=== PATIENT | male | born 1940 | race Caucasian/White ===

== ENCOUNTER → 2018-03-22 | Outpatient (CLI) | payer OTHER ==
[~2018-03-22] MED LIST: ALBU1.25 IH; CARV80CP PO; CLOB0.5P MC; DILT120T3 PO; MULT1TAB87 PO; TRAM50TA PO
--- NOTE | 2018-03-22 15:30 | CARD ---
MR#: [id number] Date of Study: 03/22/2018 Ordering Physician: MILVIA GARRIDO, Referring Physician: MILVIA GARRIDO, Tech: Vivienne Parra APPROVED REPORT EXAM: Two-dimensional and M-mode echocardiogram with Doppler and color Doppler. Other Information Quality : FairHR: 72bpm INDICATION Diastolic Heart Failure RISK FACTORS Hypertension 2D DIMENSIONS RVDd3.2 (2.9-3.5cm)Left Atrium(2D)4.2 (1.6-4.0cm) IVSd1.1 (0.7-1.1cm)Aortic Root(2D)2.9 (2.0-3.7cm) LVDd5.1 (3.9-5.9cm)LVOT Diameter2.2 (1.8-2.4cm) PWd1.3 (0.7-1.1cm)LVDs3.4 (2.5-4.0cm) FS (%) 34.8 %SV80.4 ml LVEF(%)63.7 (>50%) Aortic Valve AoV Peak Arun.159.2cm/sAoV VTI30.0cm AO Peak GR.10.1mmHgLVOT Peak Arun.89.2cm/s LVOT VTI 18.64cmAO Mean GR.5mmHg KRISTA (VMAX)2.92hg6AQR (VTI)2.40cm2 Mitral Valve MV E Jpnqpppk48.0cm/sMV DECEL [id number] MV A Ipcmjobe86.7cm/sE/A Ratio0.8 Pulmonary Valve PV Peak Epchtrta130.7cm/sPV Peak Grad.6mmHg Tricuspid Valve TR P. Intbkpjj599rb/sTR Peak Gr.21mmHg Pulmonary Vein S1 Enoxsgni95.5cm/sD2 Qwvqdcfn79.7cm/s LEFT VENTRICLE The left ventricle is normal size. There is borderline concentric left ventricular hypertrophy. The l eft ventricular systolic function is normal. The Ejection Fraction is 55%. There is normal LV segment al wall motion. Transmitral Doppler flow pattern is Grade I-abnormal relaxation pattern. RIGHT VENTRICLE The right ventricle is normal size. There is normal right ventricular wall thickness. The right ventr icular systolic function is normal. ATRIA The left atrium size is normal. The right atrium size is normal. The interatrial septum is intact wit h no evidence for an atrial septal defect or patent foramen ovale as noted on 2-D or Doppler imaging. AORTIC VALVE The aortic valve is thickened but opens well. Doppler and Color Flow revealed trace aortic regurgitat ion. There is no significant aortic valvular stenosis. MITRAL VALVE The mitral valve is thickened but opens well. There is no mitral valve stenosis. Doppler and Color-fl ow revealed trace mitral regurgitation. TRICUSPID VALVE The tricuspid valve is normal in structure and function. Doppler and Color Flow revealed trace tricus pid regurgitation. There is no tricuspid valve stenosis. PULMONIC VALVE The pulmonic valve is not well visualized. Doppler and Color Flow revealed trace pulmonic valvular re gurgitation. GREAT VESSELS The aortic root is normal in size. The IVC was not well visualized. PERICARDIAL EFFUSION There is no evidence of significant pericardial effusion. Critical Notification Critical Value: No <Conclusion> The left ventricular systolic function is normal. The Ejection Fraction is 55%. There is normal LV segmental wall motion. Transmitral Doppler flow pattern is Grade I-abnormal relaxation pattern. Trace mitral regurgitation. Trace tricuspid regurgitation. There is no evidence of significant pericardial effusion. Signed by : Keaton Hernandez, Electronically Approved : 03/22/2018 15:28:37
== END | disposition home or self-care (01) ==
LOC: ECHO 13:46
PROVIDERS: ATTEND Internal Medicine Cardiovascular Disease
DX: I11.0 Hypertensive heart disease with heart failure (principal); I50.30 Unspecified diastolic (congestive) heart failure
CPT/HCPCS: 93306

== ENCOUNTER → 2019-06-27 | Outpatient (CLI) | payer MEDICARE ==
--- NOTE | 2019-06-27 11:04 | CARD ---
MR#: [id number] Date of Study: 06/27/2019 Ordering Physician: MILVIA GARRIDO, Referring Physician: MILVIA GARRIDO, Tech: Rosalee Malcolm CHARLES APPROVED REPORT EXAM: Two-dimensional and M-mode echocardiogram with Doppler and color Doppler. Other Information Quality : Good INDICATION Diastolic Heart Failure 2D DIMENSIONS RVDd3.8 (2.9-3.5cm)Left Atrium(2D)4.3 (1.6-4.0cm) IVSd1.3 (0.7-1.1cm)Aortic Root(2D)2.9 (2.0-3.7cm) LVDd5.0 (3.9-5.9cm)LVOT Diameter2.1 (1.8-2.4cm) PWd1.1 (0.7-1.1cm)LVDs3.2 (2.5-4.0cm) FS (%) 35.6 %SV75.3 ml LVEF(%)60.0 (>50%) Aortic Valve AoV Peak Arun.127.3cm/sAoV VTI26.0cm AO Peak GR.6.5mmHgAO Mean GR.4mmHg KRISTA (VTI)2.34cm2 Mitral Valve MV E Nrbotzvm53.5cm/sMV DECEL BXVQ681xt MV A Ctiikwvj19.0cm/sE/A Ratio1.2 Tricuspid Valve TR P. Ijwnmwzf352ep/sRAP IATJNZGM0puUf TR Peak Gr.88sbXjUQGF33ixYu LEFT VENTRICLE The left ventricle is normal size. There is mild asymmetric septal hypertrophy. The left ventricular systolic function is normal. The Ejection Fraction is 55-60%. There is normal LV segmental wall motio n. RIGHT VENTRICLE The right ventricle is normal size. The right ventricular systolic function is normal. ATRIA The left atrium is mildly dilated. The right atrium size is normal. The interatrial septum is intact with no evidence for an atrial septal defect or patent foramen ovale as noted on 2-D or Doppler imagi ng. AORTIC VALVE The aortic valve is calcified but opens well. Doppler and Color Flow revealed no significant aortic r egurgitation. There is no significant aortic valvular stenosis. MITRAL VALVE The mitral valve is normal in structure and function. Posterior mitral annular calcification is mild. There is no evidence of mitral valve prolapse. There is no mitral valve stenosis. Doppler and Color- flow revealed trace mitral regurgitation. TRICUSPID VALVE The tricuspid valve is normal in structure and function. Doppler and Color Flow revealed trace tricus pid regurgitation. There is mild pulmonary hypertension. The PA pressure was estimated at 36 mmHg. Th ere is no tricuspid valve stenosis. PULMONIC VALVE The pulmonic valve is not well visualized. Doppler and Color Flow revealed no pulmonic valvular regur gitation. There is no pulmonic valvular stenosis. GREAT VESSELS The aortic root is normal in size. The ascending aorta is normal in size. The IVC is normal in size a nd collapses >50% with inspiration. PERICARDIAL EFFUSION There is no evidence of significant pericardial effusion. Critical Notification Critical Value: No <Conclusion> The left ventricular systolic function is normal. The Ejection Fraction is 55-60%. There is normal LV segmental wall motion. Trace mitral regurgitation. Trace tricuspid regurgitation. The PA pressure was estimated at 36 mmHg. There is no evidence of significant pericardial effusion. Signed by : Keaton Hernandez, Electronically Approved : 06/27/2019 11:03:25
== END | disposition home or self-care (01) ==
LOC: ECHO 09:43
PROVIDERS: ATTEND Internal Medicine Cardiovascular Disease
DX: I08.3 Combined rheumatic disorders of mitral, aortic and tricuspid valves (principal)
CPT/HCPCS: 93306

== ENCOUNTER → 2019-11-09 | Outpatient (CLI) | payer MEDICARE ==
--- NOTE | 2019-11-09 13:30 | RAD ---
EXAM: Bilateral lower extremity venous Doppler sonogram. HISTORY: Cellulitis. TECHNIQUE: Martinez scale and color Doppler sonographic evaluation of the bilateral lower extremity veins with spectral waveform analysis was performed. FINDINGS: There is normal color flow, normal compressibility and there are normal spectral waveforms in the common femoral, superficial femoral, popliteal, posterior tibial and greater saphenous veins. IMPRESSION: No Doppler evidence of lower extremity deep venous thrombosis. Electronically signed by: Brandee Lane MD (11/09/2019 1:26 PM) [id number]
== END | disposition home or self-care (01) ==
LOC: US 12:37
PROVIDERS: ATTEND Internal Medicine Nephrology
DX: R60.0 Localized edema (principal); L03.90 Cellulitis, unspecified
CPT/HCPCS: 93970

== ENCOUNTER → 2020-07-18 | Outpatient (CLI) | payer MEDICARE ==
--- NOTE | 2020-07-18 14:14 | RAD ---
EXAM: Renal sonogram. HISTORY: Renal insufficiency. TECHNIQUE: Sonographic imaging of the kidneys and bladder was performed. COMPARISON: None. FINDINGS: The kidneys are normal in size. There is echogenic renal parenchyma. There is mild cortical thinning. There is a 2.3 cm simple appearing cyst within the lateral left kidney. No solid renal les ion is seen. There is no hydronephrosis. There is slight elongation of the urinary bladder. The prevo id bladder volume is 37 cc. The ureteral jets are not seen during the exam. IMPRESSION: 1. Echogenic renal parenchyma. This can be seen with medical renal disease. 2. Bilateral renal cortical thinning. 3. 2.3 cm simple left renal cyst. 4. Slightly elongated bladder configuration. No convincing bladder mass or abnormal bladder wall thic kening is seen. Electronically signed by: Brandee Lane MD (07/18/2020 2:12 PM) [id number]
== END ==
LOC: US 12:49
PROVIDERS: ATTEND Internal Medicine Nephrology
DX: N18.30 Chronic kidney disease, stage 3 unspecified (principal); N28.1 Cyst of kidney, acquired
CPT/HCPCS: 76770

== ENCOUNTER 2021-03-19 14:11 | Inpatient (IN) | payer MEDICARE ==
[~2021-03-19] VITALS: Ht 167.6 cm; Wt 90.0 kg
--- NOTE | 2021-03-19 14:43 | PHYS DOC ---
Adult General Chief Complaint Chief Complaint: SHORTNESS OF BREATH HPI HPI Patient is a 80-year-old male presenting for shortness of breath. This is an acute on chronic issue. He has known diastolic heart failure and actually saw his cardiology prior to arrival today. States he has been gaining more weight than usual, states he is unsure how much weight he has gained but states he is definitely fluid overloaded. He has had increased shortness of breath with physical exertion and states that he has not been able to lay flat as he feels as though he is getting smothered. Symptoms prompted him to see liberal arts and humanities chair today. I had discussion and signout from liberal arts and humanities chair to was concerned of patient's fluid overloaded state and need for ER evaluation and likely admission. On arrival, patient reports ongoing shortness of breath that is worse with exertion, no other concerning signs or symptoms such as fever, lightheadedness, falls, trauma, chest pain, ripping or tearing sensation in chest, abdominal pain, changes in bladder or bowel function, no motor or sensory or neuro function changes past baseline. He has been compliant with all home medications Review of Systems Review of Systems Fourteen body systems of review of systems have been reviewed. See HPI for pertinent positives and negative responses, other capellan all other systems are negative, non-pertinent or non-contributory Allergies Allergies Allergies Coded Allergies Type Severity Reaction Last Updated Verified Penicillins Allergy Unknown 06/27/19 Yes Physical Exam Physical Exam Constitutional: Age-appropriate, overweight, no acute distress and nontoxic in appearance HENT: Normocephalic, atraumatic, bilateral external ears normal, oropharynx moist, no oral exudates, nose normal. Eyes: PERRLA, EOMI, conjunctiva normal, no discharge. Neck: Normal range of motion, no tenderness, supple, no stridor. Cardiovascular: Heart rate regular, sinus rhythm, no murmurs rubs or gallops Lungs & Thorax: No obvious respiratory failure but there is rales present in bilateral lung bases right greater than left Abdomen: Bowel sounds normal, soft and protuberant, no tenderness, no masses, no pulsatile masses. Nonsurgical abdomen, no peritoneal signs Skin: Warm, dry, no erythema, no rash. Back: No tenderness, no CVA tenderness. Extremities: No tenderness, no cyanosis, no clubbing, ROM intact, 2+ pitting edema to bilateral upper extremities and 4+ pitting edema to bilateral lower extremities with evident venous stasis noted distal portions of bilateral lower extremities Neurologic: Alert and oriented X 3, grossly normal motor & sensory function, no focal deficits noted. Psychologic: Affect normal, judgement normal, mood normal. Current Patient Data Vital Signs Vital Signs Date Time Temp Pulse Resp B/P (MAP) Pulse Ox O2 Delivery O2 Flow Rate FiO2 03/19/21 15:02 97.9 71 16 151/70 (97) 98 Room Air Vital Signs Date Time Temp Pulse Resp B/P (MAP) Pulse Ox O2 Delivery O2 Flow Rate FiO2 03/19/21 15:02 97.9 71 16 151/70 (97) 98 Room Air Lab Results Laboratory Tests Test 03/19/21 14:44 White Blood Count 6.8 x10^3/uL Red Blood Count 4.06 x10^6/uL Hemoglobin 12.5 g/dL Hematocrit 37.9 % Mean Corpuscular Volume 93 fL Mean Corpuscular Hemoglobin 31 pg Mean Corpuscular Hemoglobin Concent 33 g/dL Red Cell Distribution Width 14.4 % Platelet Count 148 x10^3/uL Neutrophils (%) (Auto) 84 % Lymphocytes (%) (Auto) 5 % Monocytes (%) (Auto) 10 % Eosinophils (%) (Auto) 1 % Basophils (%) (Auto) 0 % Neutrophils # (Auto) 5.7 x10^3uL Lymphocytes # (Auto) 0.3 x10^3/uL Monocytes # (Auto) 0.6 x10^3/uL Eosinophils # (Auto) 0.1 x10^3/uL Basophils # (Auto) 0.0 x10^3/uL Prothrombin Time 9.4 SEC Prothromb Time International Ratio 0.9 Activated Partial Thromboplast Time 24 SEC Sodium Level 128 mmol/L Potassium Level 3.8 mmol/L Chloride Level 91 mmol/L Carbon Dioxide Level 27 mmol/L Anion Gap 10 Blood Urea Nitrogen 51 mg/dL Creatinine 1.9 mg/dL Estimated GFR (Cockcroft-Gault) 34.5 BUN/Creatinine Ratio 27 Glucose Level 98 mg/dL Calcium Level 8.6 mg/dL Total Bilirubin 0.8 mg/dL Aspartate Amino Transf (AST/SGOT) 21 U/L Alanine Aminotransferase (ALT/SGPT) 20 U/L Alkaline Phosphatase 101 U/L Troponin I High Sensitivity 40 ng/L QB-Mpw-A-Type Natriuretic Peptide 12241 pg/mL Total Protein 7.0 g/dL Albumin 2.6 g/dL Albumin/Globulin Ratio 0.6 Current Medications Medications (Trade) Dose Ordered Sig/Jm Route PRN Reason Start Time Stop Time Status Last Admin Dose Admin Nitroglycerin (Nitrostat) 0.4 mg PRN Q5MIN PRN SL CP RATING > 1/10 03/19/21 14:45 03/20/21 14:44 03/19/21 15:16 Furosemide (Lasix) 80 mg 1X ONCE IVP 03/19/21 16:15 03/19/21 16:16 EKG EKG EKG ordered and interpreted by myself 1514 hrs. as sinus rhythm at 69 bpm, unremarkable intervals, left axis deviation, no obvious ischemic findings, occasional PVCs, no STEMI Radiology/Procedures Radiology/Procedures XR CHEST 1V History: Shortness of breath. Comparison: CT abdomen and pelvis 12/28/2017 Technique: Portable AP radiograph of the chest. Findings: The lungs are adequately inflated. Chronic elevation of the right diaphragm. There is a small right pleural effusion. Subtle right lower lobe airspace o pacity. No pneumothorax. Enlarged cardiac silhouette. Calcification of the aorta. Degenerative changes of the shoulders and spine. Soft tissues are unremarkable. Impression: 1. Right pleural effusion and mild right basilar opacity may represent atelecta sis or infection. 2. Cardiomegaly. Electronically signed by: You Brennan MD (03/19/2021 3:45 PM) [id number] Heart Score C/O Chest Pain: No HEART Score for Chest Pain: HEART Score for Chest Pain Response (Comments) Value History Slighlty/Non-Suspicious 0 ECG Nonspecific Repolarizatio 1 Age > 65 2 Risk Factors >3 Risk Factors or Hx CAD 2 Troponin < Normal Limit 0 Total 5 Risk Factors: Risk Factors: DM, Current or recent (<one month) smoker, HTN, HLP, family history of CAD, obesity. Risk Scores: Risk Factors: DM, Current or recent (<one month) smoker, HTN, HLP, family history of CAD, obesity. Course & Med Decision Making Course & Med Decision Making ABCs unremarkable HPI physical exam and comprehensive ER work-up obtained concerning for acute exacerbation of chronic heart failure preserved ejection fraction I agree with patient's liberal arts and humanities chair that patient requires hospitalization as he is high risk for potential bounce back in poor outcome if discharged home with diuresis in outpatient setting Contacted hospitalist at [facility] and discussed need for hospitalizatio n, patient accepted under the care of Dr. Diggs. Patient and at bedside, updated on plan of care that included hospitalizati on for continued IV diuresis for which they were amenable. 80 mg IV Lasix administered prior to hospital admission. He admits he is full CODE STATUS at time of admission Dragon Disclaimer Dragon Disclaimer This electronic medical record was generated, in whole or in part, using a voice recognition dictation system. Departure Departure: Impression: Primary Impression: Acute on chronic diastolic heart failure with preserved ejection fraction Disposition: ADMITTED INPATIENT Admitting Physician: Sabas Diggs Condition: STABLE Referrals: SARA JUAREZ MD (PCP) BLAINE HOBBS DO Mar 19, 2021 14:43
[2021-03-19] MEDS ORDERED: NITROGLYCERIN SUBLINGUAL 0.4 MG BOTTLE OF 25. SL PRN ×2 (14:45→16:15)
[2021-03-19 15:08] LABS: BASO % 0 % (0-3); EOS # 0.1 x10^3/uL (0.0-0.7); EOS % 1 % (0-3); HEMATOCRIT 37.9 % (39.0-53.0); HEMOGLOBIN 12.5 g/dL (13.0-17.5); LYMPH # 0.3 x10^3/uL (1.0-4.8); LYMPH % 5 % (24-48); MEAN CORPUSCULAR HEMOGLOBIN 31 pg (25-35); MEAN CORPUSCULAR HGB CONC 33 g/dL (31-37); MEAN CORPUSCULAR VOLUME 93 fL (79-100); MONO # 0.6 x10^3/uL (0.0-1.1); MONO % 10 % (0-9); NEUT # 5.7 x10^3uL (1.8-7.7); NEUT % 84 % (31-73); PLATELET COUNT 148 x10^3/uL (140-400); RED BLOOD COUNT 4.06 x10^6/uL (4.30-5.70); RED CELL DISTRIBUTION WIDTH 14.4 % (11.5-14.5); WHITE BLOOD COUNT 6.8 x10^3/uL (4.0-11.0)
[2021-03-19 15:09] LABS: CALCIUM 8.6 mg/dL (8.5-10.1); CREATININE 1.9 mg/dL (0.7-1.3); GFR 34.5; POTASSIUM 3.8 mmol/L (3.5-5.1)
[2021-03-19 15:22] LABS: ALBUMIN 2.6 g/dL (3.4-5.0); ALBUMIN/GLOBULIN RATIO 0.6 (1.0-1.7); TOTAL BILIRUBIN 0.8 mg/dL (0.2-1.0)
--- NOTE | 2021-03-19 15:45 | EKG ---
[address] [address] Test Date: 2021-03-19 Test Time: 15:06:27 Pat Name: SILKE RAMIREZ Department: Room: Gender: M Parachute Officer: LOLITA : 1940 Requested By: BLAINE HOBBS Order Number: [id number] Reading MD: Roberto Alberto MD Measurements Intervals [place] Rate: 69 P: PA: QRS: -4 QRSD: 94 T: 26 QT: 388 QTc: 417 Interpretive Statements SR 1ST DEGREE AVB PVC Electronically Signed On 03-23-2021 21:40:47 FACILITY MAINTENANCE HELPER by Roberto Alberto MD
--- NOTE | 2021-03-19 15:47 | RAD ---
XR CHEST 1V History: Shortness of breath. Comparison: CT abdomen and pelvis 12/28/2017 Technique: Portable AP radiograph of the chest. Findings: The lungs are adequately inflated. Chronic elevation of the right diaphragm. There is a small right p leural effusion. Subtle right lower lobe airspace opacity. No pneumothorax. Enlarged cardiac silhouet te. Calcification of the aorta. Degenerative changes of the shoulders and spine. Soft tissues are unr emarkable. Impression: 1. Right pleural effusion and mild right basilar opacity may represent atelectasis or infection. 2. Cardiomegaly. Electronically signed by: You Brennan MD (03/19/2021 3:45 PM) [facility]
[2021-03-19] MEDS ORDERED: ACETAMINOPHEN 325 MG TABLET PO PRN (16:15)
[2021-03-19] MEDS ORDERED: FUROSEMIDE 40 MG/4 ML VIAL IVP ONE (16:15)
--- NOTE | 2021-03-19 17:34 | NUR ---
PATIENT IS A 80 Y O MALE ARRIVED VIA EMS. PATIENT IS A/O X 4, CALM AND COOPERATIVE UPON ASSESSMENT. PATIENT DENIED ANY PAIN AT THIS TIME, C/O SOB. PATIENT WAS ORIENTED TO THE ROOM AND HOSPITAL POLICIES, PATIENT IS CURRENTLY UP IN A CHAIR EATING DINNER.
[2021-03-19 18:06] VITALS: BP 162/70
[2021-03-19 18:07] LABS: BILIRUBIN,URINE NEG (NEG); CLARITY,URINE CLEAR; COLOR,URINE YELLOW; GLUCOSE,URINE NEG (NEG)
[2021-03-19 18:08] LABS: BACTERIA,URINE FEW /HPF (0-FEW); NITRITE,URINE NEG (NEG); SQUAMOUS EPITHELIAL CELL,UR FEW /LPF; UROBILINOGEN,URINE 0.2 mg/dL (0.2 mg/dL)
[2021-03-19] MEDS ORDERED: TAMS0.4C97 PO (18:31)
[2021-03-19] MEDS ORDERED: CARV12.547 PO (18:31)
[2021-03-19] MEDS ORDERED: FURO-68 PO (18:31)
[2021-03-19] MEDS ORDERED: DILT360T7 PO (18:31)
[2021-03-19 19:00] VITALS: BP_SYST 138; BP_SYST 162; BP_DIAS 70; BP_DIAS 84
[2021-03-19] MEDS: ACETAMINOPHEN 325 MG TABLET PO PRN (21:50)
[2021-03-19] MEDS: CARVEDILOL 12.5 MG TABLET PO SCH (21:50)
[2021-03-19 23:00] VITALS: BP 148/69
[2021-03-20 05:00] VITALS: BP 168/76
[2021-03-20 06:55] LABS: BASO % 0 % (0-3); EOS # 0.1 x10^3/uL (0.0-0.7); EOS % 2 % (0-3); HEMATOCRIT 36.7 % (39.0-53.0); HEMOGLOBIN 12.1 g/dL (13.0-17.5); LYMPH # 0.3 x10^3/uL (1.0-4.8); LYMPH % 6 % (24-48); MEAN CORPUSCULAR HEMOGLOBIN 31 pg (25-35); MEAN CORPUSCULAR HGB CONC 33 g/dL (31-37); MEAN CORPUSCULAR VOLUME 93 fL (79-100); MONO # 0.5 x10^3/uL (0.0-1.1); MONO % 10 % (0-9); NEUT # 4.1 x10^3uL (1.8-7.7); NEUT % 82 % (31-73); PLATELET COUNT 130 x10^3/uL (140-400); RED BLOOD COUNT 3.94 x10^6/uL (4.30-5.70); RED CELL DISTRIBUTION WIDTH 14.4 % (11.5-14.5)
[2021-03-20 07:05] LABS: CALCIUM 8.5 mg/dL (8.5-10.1); CREATININE 1.9 mg/dL (0.7-1.3); GFR 34.5; POTASSIUM 3.5 mmol/L (3.5-5.1)
--- NOTE | 2021-03-20 08:16 | PDOC2 ---
CARDIAC CONSULT DATE OF CONSULT DOS: DATE: 03/20/21 TIME: 08:09 REASON FOR CONSULT Reason for Consult CHF REFERRING PHYSICIAN Referring Physician Dr. Carrion SOURCE Source: Chart review, Patient HPI History of Present Illness This is a 80 yo male who presented secondary to shortness of breath. Was seen in clinic yesterday for routine visit with Dr. Alberto and referred to the hospital for acute on chronic diastolic CHF. Patient reports significant LE extremity edema. LE's have been weeping. also reports orthopnea and shortness of breath upon minimal exertion. He denies any chest pain, palpitations, dizziness, diaphoresis, or nausea/vomiting. PAST MEDICAL HISTORY Cardiovascular: CHF, HTN Renal/: Chronic renal insuff, Prostate Ca. PAST SURGICAL HISTORY Past Surgical History: No pertinent history FAMILY HISTORY Family History: Heart Disease, Hypertension SOCIAL HISTORY Smoke: No ALCOHOL: none Drugs: None Lives: with Family CURRENT MEDICATIONS Current Medications Current Medications Nitroglycerin (Nitrostat) 0.4 mg PRN Q5MIN PRN SL CP RATING > 1/10 Last administered on 03/19/21at 15:16; Start 03/19/21 at 14:45; Stop 03/20/21 at 14:44 Furosemide (Lasix) 80 mg 1X ONCE IVP Last administered on 03/19/21at 16:15; Start 03/19/21 at 16:15; Stop 03/19/21 at 16:16; Status DC Acetaminophen (Tylenol) 650 mg PRN Q4HRS PRN PO FEVER > 100.3'F; Start 03/19/21 at 16:15; Stop 03/19/21 at 21:19; Status DC Nitroglycerin (Nitrostat) 0.4 mg PRN Q5MIN PRN SL CHEST PAIN; Start 03/19/21 at 16:15; Stop 03/20/21 at 16:14; Status UNV Furosemide (Lasix) 80 mg BID IVP ; Start 03/20/21 at 09:00 Metolazone (Zaroxolyn) 5 mg DAILY PO ; Start 03/20/21 at 09:00 Carvedilol (Coreg) 12.5 mg BIDWMEALS PO Last administered on 03/19/21at 21:50; Start 03/19/21 at 21:00 Tamsulosin HCl (Flomax) 0.4 mg DAILY PO ; Start 03/20/21 at 09:00 Diltiazem HCl (Cardizem 24hr Cd) 360 mg DAILY PO ; Start 03/20/21 at 09:00 Acetaminophen (Tylenol) 650 mg PRN Q6HRS PRN PO MILD PAIN / TEMP > 100.3'F Last administered on 03/19/21at 21:50; Start 03/19/21 at 21:30 Active Scripts Active Reported Lasix (Furosemide) 40 Mg Tablet 1 Tab PO DAILY Carvedilol (Carvedilol) 12.5 Mg Tablet 12.5 Mg PO BID Flomax (Tamsulosin Hcl) 0.4 Mg Cap.er.24h 1 Cap PO DAILY Diltiazem 24Hr ER (Diltiazem HCl) 360 Mg Tab.er.24h 1 Tab PO DAILY ALLERGIES Allergies: Coded Allergies: Penicillins (Verified Allergy, Intermediate, 03/19/21) ciprofloxacin (Verified Allergy, Intermediate, 03/19/21) doxycycline (Verified Allergy, Intermediate, 03/19/21) ROS Review of Systems 14 point ROS conducted with pertinent positives noted above in HPI PHYSICAL EXAM General: Alert, Oriented X3, Cooperative, No acute distress HEENT: Atraumatic Lungs: Other (diminished bases) Heart: Regular rate Abdomen: Soft Extremities: Other (2-3+ bilateral LE edema ) Neuro: Normal speech, Sensation intact Psych/Mental Status: Mental status NL, Mood NL MUSCULOSKELETAL: Osteoarthritic changes both hands VITALS Vital Signs Vital Signs Date Time Temp Pulse Resp B/P (MAP) Pulse Ox O2 Delivery O2 Flow Rate FiO2 03/20/21 05:00 97.7 70 18 168/76 (106) 95 Room Air LABS LABS Laboratory Tests Test 03/19/21 14:44 03/19/21 15:50 03/19/21 16:00 03/19/21 17:35 White Blood Count 6.8 x10^3/uL (4.0-11.0) Red Blood Count 4.06 x10^6/uL (4.30-5.70) Hemoglobin 12.5 g/dL (13.0-17.5) Hematocrit 37.9 % (39.0-53.0) Mean Corpuscular Volume 93 fL (79-100) Mean Corpuscular Hemoglobin 31 pg (25-35) Mean Corpuscular Hemoglobin Concent 33 g/dL (31-37) Red Cell Distribution Width 14.4 % (11.5-14.5) Platelet Count 148 x10^3/uL (140-400) Neutrophils (%) (Auto) 84 % (31-73) Lymphocytes (%) (Auto) 5 % (24-48) Monocytes (%) (Auto) 10 % (0-9) Eosinophils (%) (Auto) 1 % (0-3) Basophils (%) (Auto) 0 % (0-3) Neutrophils # (Auto) 5.7 x10^3uL (1.8-7.7) Lymphocytes # (Auto) 0.3 x10^3/uL (1.0-4.8) Monocytes # (Auto) 0.6 x10^3/uL (0.0-1.1) Eosinophils # (Auto) 0.1 x10^3/uL (0.0-0.7) Basophils # (Auto) 0.0 x10^3/uL (0.0-0.2) Prothrombin Time 9.4 SEC (9.4-11.4) Prothromb Time International Ratio 0.9 (0.9-1.1) Activated Partial Thromboplast Time 24 SEC (23-33) Sodium Level 128 mmol/L (136-145) Potassium Level 3.8 mmol/L (3.5-5.1) Chloride Level 91 mmol/L (98-107) Carbon Dioxide Level 27 mmol/L (21-32) Anion Gap 10 (6-14) Blood Urea Nitrogen 51 mg/dL (8-26) Creatinine 1.9 mg/dL (0.7-1.3) Estimated GFR (Cockcroft-Gault) 34.5 BUN/Creatinine Ratio 27 (6-20) Glucose Level 98 mg/dL (70-99) Calcium Level 8.6 mg/dL (8.5-10.1) Total Bilirubin 0.8 mg/dL (0.2-1.0) Aspartate Amino Transf (AST/SGOT) 21 U/L (15-37) Alanine Aminotransferase (ALT/SGPT) 20 U/L (16-63) Alkaline Phosphatase 101 U/L (46-116) Troponin I High Sensitivity 40 ng/L (4-75) 43 ng/L (4-75) SE-Yep-V-Type Natriuretic Peptide 58031 pg/mL (0-449) Total Protein 7.0 g/dL (6.4-8.2) Albumin 2.6 g/dL (3.4-5.0) Albumin/Globulin Ratio 0.6 (1.0-1.7) Coronavirus (COVID-19)(PCR) Not detected (NOT DETECTD) SARS-CoV-2 Antigen (Rapid) Negative (NEGATIVE) Urine Collection Type Unknown Urine Color Yellow Urine Clarity Clear Urine pH 6.0 Urine Specific [place] 1.020 Urine Protein >100 mg/dl (NEG-TRACE) Urine Glucose (UA) Neg mg/dL (NEG) Urine Ketones (Stick) Neg mg/dL (NEG) Urine Blood Trace (NEG) Urine Nitrite Neg (NEG) Urine Bilirubin Neg (NEG) Urine Urobilinogen Dipstick 0.2 mg/dL (0.2 mg/dL) Urine Leukocyte Esterase Neg (NEG) Urine RBC 1-2 /HPF (0-2) Urine WBC 1-4 /HPF (0-4) Urine Squamous Epithelial Cells Few /LPF Urine Bacteria Few /HPF (0-FEW) Test 03/19/21 20:25 03/20/21 06:34 Troponin I High Sensitivity 43 ng/L (4-75) White Blood Count 5.0 x10^3/uL (4.0-11.0) Red Blood Count 3.94 x10^6/uL (4.30-5.70) Hemoglobin 12.1 g/dL (13.0-17.5) Hematocrit 36.7 % (39.0-53.0) Mean Corpuscular Volume 93 fL (79-100) Mean Corpuscular Hemoglobin 31 pg (25-35) Mean Corpuscular Hemoglobin Concent 33 g/dL (31-37) Red Cell Distribution Width 14.4 % (11.5-14.5) Platelet Count 130 x10^3/uL (140-400) Neutrophils (%) (Auto) 82 % (31-73) Lymphocytes (%) (Auto) 6 % (24-48) Monocytes (%) (Auto) 10 % (0-9) Eosinophils (%) (Auto) 2 % (0-3) Basophils (%) (Auto) 0 % (0-3) Neutrophils # (Auto) 4.1 x10^3uL (1.8-7.7) Lymphocytes # (Auto) 0.3 x10^3/uL (1.0-4.8) Monocytes # (Auto) 0.5 x10^3/uL (0.0-1.1) Eosinophils # (Auto) 0.1 x10^3/uL (0.0-0.7) Basophils # (Auto) 0.0 x10^3/uL (0.0-0.2) Sodium Level 133 mmol/L (136-145) Potassium Level 3.5 mmol/L (3.5-5.1) Chloride Level 96 mmol/L (98-107) Carbon Dioxide Level 28 mmol/L (21-32) Anion Gap 9 (6-14) Blood Urea Nitrogen 52 mg/dL (8-26) Creatinine 1.9 mg/dL (0.7-1.3) Estimated GFR (Cockcroft-Gault) 34.5 Glucose Level 109 mg/dL (70-99) Calcium Level 8.5 mg/dL (8.5-10.1) ECHOCARDIOGRAM Echocardiogram <Conclusion> The left ventricular systolic function is normal. The Ejection Fraction is 55-60%. There is normal LV segmental wall motion. Trace mitral regurgitation. Trace tricuspid regurgitation. The PA pressure was estimated at 36 mmHg. There is no evidence of significant pericardial effusion. DATE: 06/27/19 1052 ASSESSMENT/PLAN Assessment/Plan 1. Dyspnea secondary to acute on chronic diastolic CHF; improved with diuresis 2. Hypertension; labile this am 3. Hyperlipidemia 4. CKD Recommendations Diuresis with monitoring or renal function. Goal of neg 2L over next 24 hrs. Resume home antiHTN therapy Echo to assess LV systolic function Discussed 2Gm Na dietary restriction and daily weight monitoring Supportive care SERGIO INGRAM APRN Mar 20, 2021 08:16
[2021-03-20] MEDS: FUROSEMIDE 40 MG/4 ML VIAL IVP SCH ×2 (09:50→20:50)
[2021-03-20] MEDS: TAMSULOSIN 0.4 MG CAP.ER.24H. PO SCH (09:51)
[2021-03-20] MEDS: CARVEDILOL 12.5 MG TABLET PO SCH ×2 (09:51→17:30)
[2021-03-20] MEDS: metOLazone 5 MG TABLET PO SCH (09:52)
[2021-03-20 10:46] VITALS: BP 170/60
[2021-03-20 15:08] VITALS: BP 172/77
--- NOTE | 2021-03-20 16:07 | HP ---
DATE OF SERVICE: 03/20/2021 ADMIT DATE: 03/19/2021 HISTORY OF PRESENT ILLNESS: The patient is a 80-year-old male patient who apparently was seen in the clinic for routine visit with Dr. Alberto and was referred to the hospital for acute on chronic diastolic congestive heart failure. The patient had reported significant lower extremity edema. His legs were weeping, also reports orthopnea and shortness of breath upon minimal exertion. He denied any chest pain, palpitation, dizziness, lightheadedness, or diaphoresis. Denied any nausea or vomiting. He was extensively investigated in the Emergency Room and has had lab work as well as imaging studies. His CBC was essentially unremarkable. He has hyponatremia, chronic kidney disease. His beta natriuretic peptide was 12,221. His troponin was only 40 ng/mL. Urinalysis is essentially unremarkable and his chest x-ray showed right pleural effusion and mild right basilar opacity, may represent atelectasis or infection and cardiomegaly. The patient was treated with IV Lasix 80 mg and given nitroglycerin and was admitted for aggressive diuresis as an inpatient. PAST MEDICAL HISTORY: Significant for congestive heart failure, hypertension, chronic kidney disease and prostate cancer. PAST SURGICAL HISTORY: Unremarkable. FAMILY HISTORY: Significant for heart disease and hypertension. SOCIAL HISTORY: He lives with his family. He does not smoke, drink alcohol or recreational drugs. ALLERGIES: HE IS ALLERGIC TO PENICILLIN, CIPROFLOXACIN, AND DOXYCYCLINE. MEDICATIONS: He is currently on the following medications: He is on tamsulosin 0.4 mg once a day, carvedilol 12.5 mg twice a day, diltiazem 360 mg daily and furosemide 40 mg once a day. REVIEW OF SYSTEMS: As per history of present illness. PHYSICAL EXAMINATION: GENERAL: On arrival to the Emergency Room, he looked well and was clearly in no apparent respiratory distress. He was somewhat pale, but not jaundiced or cyanosed, no lymphadenopathy, no thyromegaly, no jugular venous distention, but marked bilateral lower extremity edema. VITAL SIGNS: His heart rate was 71, blood pressure is 151/70, temperature was 97.9, respiratory rate was 16 and oxygen saturation was 98%. HEAD, EYES, EARS, NOSE, AND THROAT: Normocephalic, atraumatic. NECK: Supple. HEART: Normal first and second heart sounds, no gallop or murmur. CHEST: Shows central trachea, equally reduced expansion, reduced air entry, vesicular breath sounds. I could not really appreciate any crepitation or rhonchi. ABDOMEN: Distended, soft, nontender. NEUROLOGIC: He is awake, alert, responding appropriately. Cranial nerves intact. He moves extremities without difficulty. He has marked bilateral lower extremity edema. LABORATORY DATA: On admission showed a white cell count of 6800, hemoglobin 12.5, hematocrit 37.9, MCV 93, and platelet count of 148,000 with a manual differential of 84% polymorphs, 5% lymphocytes and 10% monocytes. Serum sodium was 128, potassium 3.8, chloride 91, bicarbonate 27, anion gap of 10, BUN 51, creatinine 1.9. Estimated GFR was 34 mL per minute. His glucose was 98, calcium was 8.6. Total bilirubin, AST, ALT, alkaline phosphatase were normal. Beta natriuretic peptide was 12,221. Total protein 7, albumin was 2.6. His prothrombin time was 9.4. INR 0.9, APTT was 24. Urinalysis was essentially unremarkable and his coronavirus by PCR was not detectable. PLAN: To reconcile all his medication. I did start him on Lasix 80 mg IV twice a day together on metolazone, fluid restriction. We will weigh him on a daily basis. Monitor his lab work and replenish his electrolytes as needed. PADMINI/IRVIN DENT: Cordelia TID: [id number]
[2021-03-20 16:15] LABS: ALBUMIN 2.4 g/dL (3.4-5.0); ALBUMIN/GLOBULIN RATIO 0.6 (1.0-1.7); CALCIUM 8.4 mg/dL (8.5-10.1); CREATININE 1.9 mg/dL (0.7-1.3); GFR 34.5; MAGNESIUM 2.1 mg/dL (1.8-2.4); POTASSIUM 3.4 mmol/L (3.5-5.1); TOTAL BILIRUBIN 0.5 mg/dL (0.2-1.0); TOTAL PROTEIN 6.4 g/dL (6.4-8.2)
[2021-03-20 19:34] VITALS: BP 163/83
[2021-03-20] MEDS: POTASSIUM CHLORIDE 20 MEQ TABLET.ER. PO SCH (20:50)
--- NOTE | 2021-03-20 21:08 | PN ---
DATE: 03/20/2021 SUBJECTIVE: The patient is sitting in his chair comfortably, in no apparent distress. On questioning him, he stated that he is going to the bathroom almost every hour and has urinated a lot. PHYSICAL EXAMINATION: GENERAL: When I examined him, he looked well and was clearly in no apparent respiratory distress, somewhat pale, no jaundice, cyanosis or thyromegaly. No jugular venous distention, but marked bilateral lower extremity edema. VITAL SIGNS: His heart rate was 77, blood pressure was 170/60, temperature was 98, respiratory rate 20, and oxygen saturation was 96% on room air. HEAD, EYES, EARS, NOSE, AND THROAT: Normocephalic, atraumatic. NECK: Supple. HEART: Normal first and second heart sounds. No gallop, rub, or murmur. CHEST: Clear to auscultation, no crepitation or rhonchi. ABDOMEN: Distended, soft, and nontender. NEUROLOGIC: He was awake, alert, and responding appropriately. All cranial nerves intact. He moves extremities without difficulty. He ambulates with a walker. He has marked bilateral lower extremity edema. His intake over the last 24 hours and output incompletely recorded. LABORATORY DATA: This morning showed his white cell count was 5000, hemoglobin 12, hematocrit 36, MCV 93, and platelet count of 130,000. Serum sodium was 133, potassium 3.5, chloride 96, bicarbonate 28, anion gap of 9, BUN 52, creatinine 1.9. Estimated GFR was 34 mL per minute. His glucose was 109, calcium was 8.5. ASSESSMENT: 1. Acute on chronic diastolic congestive heart failure. 2. Hypertension, labile. 3. Hyperlipidemia 4. Chronic kidney disease. 5. Psoriasis and psoriatic arthritis. PLAN: The plan is to continue with the IV antibiotic and continue with daily weight and monitor his electrolytes and replenish them as needed. ZAYNAB DR: Cordelia TID: [id number]
[2021-03-20 23:26] VITALS: BP 166/73
[2021-03-21 06:09] VITALS: BP 195/86
[2021-03-21] MEDS: FUROSEMIDE 40 MG/4 ML VIAL IVP SCH ×2 (08:11→20:39)
[2021-03-21] MEDS: TAMSULOSIN 0.4 MG CAP.ER.24H. PO SCH (08:12)
[2021-03-21] MEDS: CARVEDILOL 12.5 MG TABLET PO SCH ×2 (08:12→17:58)
[2021-03-21] MEDS: metOLazone 5 MG TABLET PO SCH (08:12)
[2021-03-21] MEDS: POTASSIUM CHLORIDE 20 MEQ TABLET.ER. PO SCH ×2 (08:13→20:38)
[2021-03-21 11:05] VITALS: BP 208/76
--- NOTE | 2021-03-21 12:39 | PDOC ---
PROGRESS NOTES Date of Service DOS: DATE: 03/21/21 TIME: 12:39 Diagnosis Problem Problems Medical Problems: (1) Acute on chronic diastolic heart failure with preserved ejection fraction Status: Acute Assessment 1. Acute on chronic diastolic CHF; improving with diuresis with Lasix and metolazone. I/O negative by 3 L but patient still has significant amount of edema. Patient really wanted to go home but we convinced him to stay another night for more diuresis. Since he does not want to stay any longer than tomorrow, change diuretic regimen to Lasix 40 mg twice daily and continue metolazone 5 mg daily and follow-up with Dr. Alberto in 2 to 4 weeks. 2. Hypertension; continues to be elevated. Start hydralazine for better control 3. Hyperlipidemia 4. CKD Subjective Feeling better with improvement in dyspnea and edema. Patient kept saying that he wanted to go home today. Objective Vital Signs Date Time Temp Pulse Resp B/P (MAP) Pulse Ox O2 Delivery O2 Flow Rate FiO2 03/21/21 11:05 97.3 78 20 208/76 (120) 96 Room Air l Intake and Output 03/21/21 07:00 Intake Total 950 ml Output Total 4000 ml Balance -3050 ml Intake Oral 950 ml Output Urine Total 4000 ml # Bowel Movements 3 Abdomen: Soft Heart: Other (ESM aortic) Extremities: Other (3+ pitting pedal edema) General: Alert HEENT: Atraumatic Lungs: Other (Bilateral basal crepitations) Neck: Supple Neuro: Normal speech Psych/Mental Status: Mental status NL Review of Relevant I have reviewed the following items flor (where applicable) has been applied. Labs Laboratory Tests Test 03/20/21 15:40 Sodium Level 134 mmol/L (136-145) L Potassium Level 3.4 mmol/L (3.5-5.1) L Chloride Level 98 mmol/L (98-107) Carbon Dioxide Level 29 mmol/L (21-32) Anion Gap 7 (6-14) Blood Urea Nitrogen 54 mg/dL (8-26) H Creatinine 1.9 mg/dL (0.7-1.3) H Estimated GFR (Cockcroft-Gault) 34.5 BUN/Creatinine Ratio 28 (6-20) H Glucose Level 109 mg/dL (70-99) H Calcium Level 8.4 mg/dL (8.5-10.1) L Magnesium Level 2.1 mg/dL (1.8-2.4) Total Bilirubin 0.5 mg/dL (0.2-1.0) Aspartate Amino Transferase (AST) 15 U/L (15-37) Alanine Aminotransferase (ALT) 15 U/L (16-63) L Alkaline Phosphatase 90 U/L (46-116) Total Protein 6.4 g/dL (6.4-8.2) Albumin 2.4 g/dL (3.4-5.0) L Albumin/Globulin Ratio 0.6 (1.0-1.7) L Medications Current Medications Medications (Trade) Dose Ordered Sig/Jm Route PRN Reason Start Time Stop Time Status Last Admin Dose Admin Potassium Chloride (Klor-Con) 20 meq BID PO 03/20/21 21:00 03/21/21 08:13 Vitals/I & O Vital Signs Date Time Temp Pulse Resp B/P (MAP) Pulse Ox O2 Delivery O2 Flow Rate FiO2 03/21/21 11:05 97.3 78 20 208/76 (120) 96 Room Air I & O 03/20/21 03/20/21 03/21/21 15:00 23:00 07:00 Intake Total 500 ml 450 ml Output Total 400 ml 1750 ml 1850 ml Balance -400 ml -1250 ml -1400 ml Justification of Admission: Justification of Admission: Justification of Admission Dx: Yes CARLOS MEREDITH MD Mar 21, 2021 12:39
[2021-03-21 14:54] VITALS: BP 171/110
[2021-03-21] MEDS ORDERED: hydrALAZINE 20 MG/ML VIAL. IV PRN (15:00)
--- NOTE | 2021-03-21 15:32 | NUR ---
Nursing note: Pt alert and oriented x4, cooperative, ambulatory with walker. Pt remains on sitting position in a chair most the time and refuses to lie down on bed despite education on risk of pressure ulcer. Patient was seen by PCP, ict support technicians, and paid search analyst. Patient states he wants to go home today, but would stay in the hospital for another day per ict support technicians's advice. Will continue to monitor patient's condition.
[2021-03-21 15:40] LABS: CALCIUM 8.8 mg/dL (8.5-10.1); CREATININE 2.2 mg/dL (0.7-1.3); GFR 29.1; POTASSIUM 3.3 mmol/L (3.5-5.1)
[2021-03-21 17:43] VITALS: BP 194/92
[2021-03-21] MEDS: LORazepam 0.5 MG TABLET PO PRN (17:57)
[2021-03-21] MEDS: ACETAMINOPHEN 325 MG TABLET PO PRN (17:57)
[2021-03-21 19:47] LABS: THYROID STIM HORMONE (TSH) 1.21 uIU/mL (0.358-3.740)
[2021-03-21 19:58] VITALS: BP 168/103
[2021-03-21] MEDS: hydrALAZINE 25 MG TABLET PO SCH (20:39)
[2021-03-21] MEDS ORDERED: hydrALAZINE 25 MG TABLET PO SCH (21:00)
[2021-03-22 00:31] VITALS: BP 167/81
[2021-03-22 03:14] VITALS: BP 169/92
[2021-03-22] MEDS: CARVEDILOL 12.5 MG TABLET PO SCH ×2 (06:04→16:52)
[2021-03-22 06:05] VITALS: BP 183/100
[2021-03-22 07:02] LABS: ALBUMIN 2.7 g/dL (3.4-5.0); ALBUMIN/GLOBULIN RATIO 0.7 (1.0-1.7); CALCIUM 9.1 mg/dL (8.5-10.1); GFR 32.5; MAGNESIUM 1.9 mg/dL (1.8-2.4); POTASSIUM 3.3 mmol/L (3.5-5.1); TOTAL BILIRUBIN 0.6 mg/dL (0.2-1.0); TOTAL PROTEIN 6.8 g/dL (6.4-8.2)
--- NOTE | 2021-03-22 07:56 | PN ---
DATE: 03/21/2021 SUBJECTIVE: The patient is sitting comfortably in his chair, in no apparent respiratory distress. He is awake, alert. On questioning him, he denied any complaint. He was insisting he wants to go home; however, ____ has spoken to him and the plan was for him to continue for another day here today and tomorrow he will be discharged home with Lasix twice a day and metolazone. When I examined him this afternoon, he looked well and was clearly in no apparent respiratory distress. No pallor, jaundice, cyanosis or thyromegaly. No jugular venous distention. No limb edema. OBJECTIVE: VITAL SIGNS: His heart rate was 78, blood pressure was 208/76, temperature was 97.3, respiratory rate was 20 and oxygen saturation was 96%. HEAD, EYES, EARS, NOSE AND THROAT: Normocephalic, atraumatic. NECK: Supple. HEART: Normal first and second heart sounds. No gallop, rub or murmur. CHEST: Clear to auscultation. No crepitation or rhonchi. ABDOMEN: Distended, soft, nontender. NEUROLOGIC: He is awake, alert, responding appropriately, appears intact. He moves extremities without difficulty, ambulates without assistance or assistive devices. He continued to have marked bilateral lower extremity edema. His intake over the last 24 hours and output are incompletely recorded. LABORATORY WORK : Still pending at this time. ASSESSMENT: 1. Acute on chronic diastolic congestive heart failure. 2. Hypertension. 3. Hyperlipidemia. 4. Chronic kidney disease. 5. Psoriasis and psoriatic arthritis. PLAN: To continue with IV diuretics, continued fluid restriction. Continue to monitor his electrolytes and replenish him as needed. He will be discharged home tomorrow. ADILSON/OLEG DR: PADMINI/sharla TID: [id number]
[2021-03-22] MEDS: TAMSULOSIN 0.4 MG CAP.ER.24H. PO SCH (09:18)
[2021-03-22] MEDS: hydrALAZINE 25 MG TABLET PO SCH ×4 (09:18→21:05)
[2021-03-22] MEDS: POTASSIUM CHLORIDE 20 MEQ TABLET.ER. PO SCH ×3 (09:18→21:04)
[2021-03-22] MEDS: metOLazone 5 MG TABLET PO SCH (09:18)
[2021-03-22] MEDS: FUROSEMIDE 40 MG/4 ML VIAL IVP SCH (09:19)
[2021-03-22 10:43] VITALS: BP 183/81
[2021-03-22] MEDS: predniSONE 20 MG TABLET PO SCH (13:00)
--- NOTE | 2021-03-22 13:25 | PN ---
DATE: 03/22/2021 SUBJECTIVE: The patient is sitting on the edge of the bed comfortably, in no apparent distress, swelling on his both lower extremities is much improved. He continued to have very dry, scaly skin. PHYSICAL EXAMINATION: GENERAL: When I examined him, he looked well and was clearly in no apparent respiratory distress. No pallor, not jaundiced or cyanosed, no thyromegaly. No jugular venous distention. Marked bilateral lower limb edema. VITAL SIGNS: His heart rate was 77, blood pressure was 183/81, temperature was 97.5, respiratory rate 20, and oxygen saturation was 97% on room air. HEAD, EYES, EARS, NOSE AND THROAT: Normocephalic, atraumatic. NECK: Supple. HEART: Showed normal first and second heart sounds. No gallop, rub or murmur. CHEST: Clear to auscultation, no crepitation or rhonchi. ABDOMEN: Distended, soft, nontender. NEUROLOGIC: He was awake, alert, responding appropriately. Cranial nerves intact. He moves extremities without difficulty, ambulates with a walker. EXTREMITIES: Examination of both lower extremities showed that he continued to have marked bilateral lower extremity edema, dry scaly skin. On the right leg, the skin is oozing. His intake over the last 24 hours was 950, output was 4000. LABORATORY DATA: This morning showed a serum sodium 142, potassium 3.3, chloride 99, bicarbonate 32, anion gap of 11, BUN 57, creatinine 2, estimated GFR was 32 mL per minute. His glucose 112, calcium was 9.1, magnesium was 1.9. Total bilirubin, AST, ALT, alkaline phosphatase were normal. Total protein 6.8, albumin was 2.7. ASSESSMENT: 1. Acute on chronic diastolic congestive heart failure. 2. Hypertension, suboptimally controlled. 3. Hyperlipidemia. 4. Chronic kidney disease, stable. 5. Psoriasis and psoriatic arthritis. 6. Bilateral chronic venous stasis, bilateral lower extremity lymphedema. PLAN: My plan is to continue with diuresis. Continue with fluid restriction. Continue to monitor his electrolytes and replenish his potassium as needed. We will start him on steroids as recommended by his director of in service education as well as [place]. I would also increase his potassium to 3 times a day and as his blood pressure is suboptimally controlled, I will increase his hydralazine to 50 mg 3 times a day and hopefully he will be discharged home tomorrow. DEDRICK DR: Cordelia TID: [id number]
[2021-03-22] MEDS ORDERED: FUROSEMIDE 40 MG/4 ML VIAL IVP SCH (14:00)
[2021-03-22 14:37] VITALS: BP 150/88
[2021-03-22] MEDS: ACETAMINOPHEN 325 MG TABLET PO PRN ×2 (15:16→21:05)
--- NOTE | 2021-03-22 16:00 | PDOC ---
DATE OF SERVICE: DOS: DATE: 03/22/21 TIME: 15:58 SUBJECTIVE: Patient seen and examined He reports feeling better. OBJECTIVE: Problems: Problems Medical Problems: (1) Acute on chronic diastolic heart failure with preserved ejection fraction Status: Acute Vital Signs/I&O: Vital Signs Date Time Temp Pulse Resp B/P (MAP) Pulse Ox O2 Delivery O2 Flow Rate FiO2 03/22/21 15:04 71 150/88 03/22/21 14:37 97.9 20 97 Room Air I & O 03/21/21 03/21/21 03/22/21 15:00 23:00 07:00 Intake Total 510 ml 200 ml Output Total 1000 ml 550 ml 1000 ml Balance -1000 ml -40 ml -800 ml Labs: Laboratory Tests Test 03/22/21 06:16 Sodium Level 142 mmol/L (136-145) Potassium Level 3.3 mmol/L (3.5-5.1) L Chloride Level 99 mmol/L (98-107) Carbon Dioxide Level 32 mmol/L (21-32) Anion Gap 11 (6-14) Blood Urea Nitrogen 57 mg/dL (8-26) H Creatinine 2.0 mg/dL (0.7-1.3) H Estimated GFR (Cockcroft-Gault) 32.5 BUN/Creatinine Ratio 29 (6-20) H Glucose Level 112 mg/dL (70-99) H Calcium Level 9.1 mg/dL (8.5-10.1) Magnesium Level 1.9 mg/dL (1.8-2.4) Total Bilirubin 0.6 mg/dL (0.2-1.0) Aspartate Amino Transferase (AST) 16 U/L (15-37) Alanine Aminotransferase (ALT) 16 U/L (16-63) Alkaline Phosphatase 79 U/L (46-116) Total Protein 6.8 g/dL (6.4-8.2) Albumin 2.7 g/dL (3.4-5.0) L Albumin/Globulin Ratio 0.7 (1.0-1.7) L ASSESSMENT: 1. Acute on chronic diastolic CHF; patient has increased proved with IV Lasix and metolazone. Have changed diuretics to Lasix 40 mg p.o. twice daily and metolazone 5 mg a day. Replace and monitor potassium. Follow-up with Dr. Ganga gong in 2 to 4 weeks. 2. Hypertension; improved on present treatment. Continues to be elevated. Start hydralazine for better control 3. Hyperlipidemia. Statin. 4. CKD. Morning creatinine of 2.0. Justification of Admission: Justification of Admission: Justification of Admission Dx: Yes TICO BRUSH MD Mar 22, 2021 16:00
[2021-03-22] MEDS: LORazepam 0.5 MG TABLET PO PRN ×2 (16:52→21:04)
[2021-03-22 20:03] VITALS: BP 167/80
[2021-03-22] MEDS: AMMONIUM LACTATE 12% TOPICAL LOTION 226GM BOTTLE. TP SCH (21:00)
[2021-03-23 00:29] VITALS: BP 168/94
[2021-03-23 05:00] VITALS: BP 166/78
--- NOTE | 2021-03-23 05:49 | NUR ---
Pt is pleasant and cooperative. He has urinary stress incontinence and dribbles on the way to the toilet. Pt loses track of time and insisted on staying in his chair until 0100 to "watch television and read." Found pt twice hunched over in the chair dozing off. With multiple efforts at strong encouragement, this nurse was able to convince pt to move to the recliner. He stated he "didn't realize how late it was." He also states he doesn't sleep in a bed. Pt was up multiple times through the night to urinate. He denies pain. Will continue to monitor.
[2021-03-23 08:33] LABS: GFR 32.5; POTASSIUM 3.4 mmol/L (3.5-5.1)
[2021-03-23] MEDS: POTASSIUM CHLORIDE 20 MEQ TABLET.ER. PO SCH (08:59)
[2021-03-23] MEDS: hydrALAZINE 25 MG TABLET PO SCH (08:59)
[2021-03-23] MEDS: metOLazone 5 MG TABLET PO SCH (09:00)
[2021-03-23] MEDS: predniSONE 20 MG TABLET PO SCH (09:00)
[2021-03-23] MEDS ORDERED: FUROSEMIDE 40 MG TABLET PO SCH (09:00)
[2021-03-23] MEDS: TAMSULOSIN 0.4 MG CAP.ER.24H. PO SCH (09:00)
[2021-03-23] MEDS: AMMONIUM LACTATE 12% TOPICAL LOTION 226GM BOTTLE. TP SCH (09:00)
[2021-03-23 09:01] VITALS: BP 166/78
[2021-03-23] MEDS: CARVEDILOL 12.5 MG TABLET PO SCH (09:01)
[2021-03-23] MEDS ORDERED: HYDR-2869 PO (10:15)
[2021-03-23] MEDS ORDERED: FURO40TA4 PO (10:15)
[2021-03-23] MEDS ORDERED: LORA-254 PO (10:15)
[2021-03-23] MEDS ORDERED: METO2.5T PO (10:15)
[2021-03-23] MEDS ORDERED: AMMO385C5 TP (10:15)
[2021-03-23] MEDS: LORazepam 0.5 MG TABLET PO PRN (12:00)
--- NOTE | 2021-03-23 13:49 | PDOC ---
DATE OF SERVICE: DOS: DATE: 03/23/21 TIME: 13:46 SUBJECTIVE: Patient seen and examined The patient looks and feels better today. OBJECTIVE: Problems: Problems Medical Problems: (1) Acute on chronic diastolic heart failure with preserved ejection fraction Status: Acute Vital Signs/I&O: Vital Signs Date Time Temp Pulse Resp B/P (MAP) Pulse Ox O2 Delivery O2 Flow Rate FiO2 03/23/21 09:01 81 166/78 03/23/21 08:00 Room Air 03/23/21 05:00 97.4 18 96 I & O 03/22/21 03/22/21 03/23/21 15:00 23:00 07:00 Intake Total 120 ml Output Total 1350 ml 300 ml 800 ml Balance -1230 ml -300 ml -800 ml Labs: Laboratory Tests Test 03/23/21 07:30 Sodium Level 142 mmol/L (136-145) Potassium Level 3.4 mmol/L (3.5-5.1) L Chloride Level 99 mmol/L (98-107) Carbon Dioxide Level 33 mmol/L (21-32) H Anion Gap 10 (6-14) Blood Urea Nitrogen 59 mg/dL (8-26) H Creatinine 2.0 mg/dL (0.7-1.3) H Estimated GFR (Cockcroft-Gault) 32.5 Glucose Level 117 mg/dL (70-99) H Calcium Level 9.0 mg/dL (8.5-10.1) Physical Exam: Chest. Mildly decreased breath sounds but improved. CV. Irregular rhythm. Abdomen. Soft. ASSESSMENT: 1. Acute on chronic diastolic CHF; the patient continues to improve on present treatments. Morning labs shows a potassium of 3.4 and creatinine stable at 2.0. Patient states he is ready to go home. Will follow up with Dr. Alberto in 2 to 4 weeks. 2. Hypertension; improved on present treatment. 3. Hyperlipidemia. Statin. 4. CKD. Morning creatinine of 2.0. Justification of Admission: Justification of Admission: Justification of Admission Dx: Yes TICO BRUSH MD Mar 23, 2021 13:48
--- NOTE | 2021-03-23 13:52 | NUR ---
Discharge note Pt discharged at 1339 via wheelchair accompanied by family member. pt given written and verbal instructions with verbal statement of understanding received.
== END 2021-03-23 13:54 | disposition home or self-care (01) | DRG 291 ==
LOC: ER 14:11 → 1 SOUTH 16:12
PROVIDERS: ADMIT Internal Medicine; ATTEND Internal Medicine
DX: I13.0 Hypertensive heart and chronic kidney disease with heart failure and stage 1 through stage 4 chronic kidney disease, or unspecified chronic kidney disease (principal); I50.33 Acute on chronic diastolic (congestive) heart failure; E87.1 Hypo-osmolality and hyponatremia; E78.5 Hyperlipidemia, unspecified; I87.8 Other specified disorders of veins; I89.0 Lymphedema, not elsewhere classified; L40.50 Arthropathic psoriasis, unspecified; N18.9 Chronic kidney disease, unspecified; Z79.899 Other long term (current) drug therapy; Z82.49 Family history of ischemic heart disease and other diseases of the circulatory system; Z85.46 Personal history of malignant neoplasm of prostate; Z20.822 Contact with and (suspected) exposure to COVID-19; Z88.0 Allergy status to penicillin
CPT/HCPCS: 36415; 71045; 80048; 80053; 80061; 81001; 83735; 83880; 84443; 84484; 85025; 85610; 85730; 87426; 93005; 96374; J0360; J1940; J7512; U0003; 99285-25

== ENCOUNTER → 2021-07-15 | Outpatient (CLI) | payer MEDICARE ==
[~2021-07-15] MED LIST changes: +AMMO385C5 TP; +CARV12.547 PO; +DILT360T7 PO; +FURO-68 PO; +FURO40TA4 PO; +HYDR-2869 PO; +LORA-254 PO; +METO2.5T PO; +TAMS0.4C97 PO
--- NOTE | 2021-07-15 17:05 | CARD ---
MR#: [id number] Date of Study: 07/15/2021 Ordering Physician: MILVIA GARRIDO, Referring Physician: MILVIA GARRIDO, Tech: Olvin Dewey [facility] APPROVED REPORT EXAM: Two-dimensional and M-mode echocardiogram with Doppler and color Doppler. Other Information Quality : FairHR: 88bpm Rhythm : Atrial Fibrillation INDICATION Atrial Fibrillation RISK FACTORS Hypertension Hyperlipidemia Smoking 2D DIMENSIONS Left Atrium(2D)5.4 (1.6-4.0cm)IVSd1.2 (0.7-1.1cm) Aortic Root(2D)3.1 (2.0-3.7cm)LVDd5.9 (3.9-5.9cm) LVOT Diameter2.0 (1.8-2.4cm)PWd1.2 (0.7-1.1cm) LA [id number] (18-58mL)LVDs4.5 (2.5-4.0cm) FS (%) 24.7 %SV84.2 ml LVEF(%)48.1 (>50%) Aortic Valve AoV Peak Arun.123.4cm/sAoV VTI22.2cm AO Peak GR.6.1mmHgLVOT Peak Arun.68.1cm/s LVOT VTI 12.82cmAO Mean GR.3mmHg KRISTA (VMAX)1.26eu9HZM (VTI)1.75cm2 Mitral Valve MV E Tofwtbzn57.9cm/sMV DECEL [id number] MV A Azkvseaf60.0cm/sE/A Ratio3.1 Pulmonary Valve PV Peak Ntmboima55.5cm/sPV Peak Grad.2mmHg Tricuspid Valve TR P. [id number]/sTR Peak Gr.34mmHg LEFT VENTRICLE The left ventricle is normal size. There is mild concentric left ventricular hypertrophy. The systoli c function is moderately impaired. EF 40% There is moderate global hypokinesis. Tissue Doppler imagin g reveals moderate left ventricular diastolic dysfunction. No left ventricle thrombus noted on this s tudy. There is no ventricular septal defect visualized. There is no left ventricular aneurysm. There is no mass noted in the left ventricle. RIGHT VENTRICLE The right ventricle is normal size. There is normal right ventricular wall thickness. The right ventr icular systolic function is normal. ATRIA The left atrium is moderately dilated. The right atrium size is normal. The interatrial septum is int act with no evidence for an atrial septal defect or patent foramen ovale as noted on 2-D or Doppler i maging. AORTIC VALVE The aortic valve is calcified but opens well. Doppler and Color Flow revealed trace aortic regurgitat ion. There is no significant aortic valvular stenosis. There is no aortic valvular vegetation. MITRAL VALVE The mitral valve is thickened but opens well. There is no evidence of mitral valve prolapse. There is no mitral valve stenosis. Doppler and Color-flow revealed mild mitral regurgitation. TRICUSPID VALVE The tricuspid valve leaflets are thickened , but open well. Doppler and Color Flow revealed mild tric uspid regurgitation. The PA pressure was estimated at 39 mmHg. There is no tricuspid valve prolapse o r vegetation. There is no tricuspid valve stenosis. PULMONIC VALVE There is trivial pulmonic regurgitation. There is no pulmonic valvular stenosis. GREAT VESSELS The aortic root is normal in size. The ascending aorta is normal in size. The IVC is normal in size a nd collapses >50% with inspiration. PERICARDIAL EFFUSION There is no pleural effusion. There is no evidence of significant pericardial effusion. Critical Notification Critical Value: No <Conclusion> The systolic function is moderately impaired. EF 40% There is moderate global hypokinesis. Doppler and Color Flow revealed mild tricuspid regurgitation. The PA pressure was estimated at 39 mmH g. Signed by : Milvia Garrdio, Electronically Approved : 07/15/2021 17:05:27
== END ==
LOC: ECHO 12:57
PROVIDERS: ATTEND Internal Medicine Cardiovascular Disease
DX: I08.8 Other rheumatic multiple valve diseases (principal); I48.91 Unspecified atrial fibrillation
CPT/HCPCS: 93306

== ENCOUNTER → 2021-07-16 | Outpatient (CLI) | payer MEDICARE | LOC: SPEC 08:00 | PROVIDERS: ATTEND Internal Medicine Nephrology | DX: N17.9 Acute kidney failure, unspecified (principal) | CPT/HCPCS: 82570; 84156 ==